=== PATIENT | female | born 1950 | race Caucasian/White ===

== ENCOUNTER 2021-06-18 06:13 | Day surgery (SDC) | payer MEDICARE ==
[2021-06-11 13:17] LABS: ALBUMIN 3.8 G/DL (3.4-5.0); ALKALINE PHOSPHATASE 68 IU/L (46-116); BLOOD UREA NITROGEN 17 MG/DL (7-18); BUN/CREATININE RATIO 21.3 (6.6-38.0); CALCIUM 9.2 MG/DL (8.5-10.1); CHLORIDE 103 MMOL/L (99-107); PRE OP ALT 60 U/L (30-65); PRE OP ANION GAP 6 (8-16); PRE OP AST 34 U/L (10-37); PRE OP BILIRUB, TOTAL 0.6 MG/DL (0.0-1.0); PRE OP GLUCOSE 88 MG/DL (70-104); PRE OP POTASSIUM 3.6 MMOL/L (3.4-5.1); PRE OP SODIUM 141 MMOL/L (135-145); TOTAL CARBON DIOXIDE 31.6 MMOL/L (24-32); TOTAL PROTEIN 7.6 G/DL (6.4-8.2); eGFR 71 ML/MIN
[2021-06-11 13:57] LABS: BASOPHILS # (AUTO) 0.1 X10'3 (0-0.2); EOSINOPHILS # (AUTO) 0.2 X10'3 (0-0.9); LYMPHOCYTES # (AUTO) 1.4 X10'3 (1.1-4.8); LYMPHOCYTES % (AUTO) 26.2 % (21-51); MEAN CORPUSCULAR HGB CONC 34.2 g/dL (33.0-36.5); MEAN CORPUSCULAR VOLUME 90.8 FL (78-98); MEAN PLATELET VOLUME 8.7 FL (7.4-10.4); MONOCYTES # (AUTO) 0.6 X10'3 (0-0.9); MONOCYTES % (AUTO) 11.8 % (2-12); PRE OP HEMATOCRIT 44.6 % (35.0-45.0); PRE OP HEMOGLOBIN 15.2 g/dL (12.0-16.0); PRE OP PLATELET COUNT 281 X10'3 (140-440); RED BLOOD COUNT 4.91 X10'6 (4.20-5.60); RED CELL DISTRIBUTION WIDTH 13.6 % (11.5-14.5)
[~2021-06-18] VITALS: Ht 167.6 cm; Wt 91.2 kg
[~2021-06-18 06:13] MED LIST: CALC-854 PO; DILT-115 PO; ERGO400C PO; ESTR1PAT TD; HYDR12.55 PO; MAGN200T PO; OMEG-79 PO; PRAV40TA3 PO; THYR90TA12 PO; VITA0.4T18 PO; cefazolin/dext.iso 2gm/100ml IV ONE; famotidine 20mg tablet PO ONE; ringers solution, lacted 1,000 ML IV SCH
[2021-06-18 06:20] VITALS: BP 148/89
[2021-06-18] MEDS ORDERED: BUPIVAcaine/PF 2.5mg/ml (0.25%) 10ml vial ONE (06:42)
[2021-06-18] MEDS ORDERED: proCHLORperazine 10 MG/2 ml inj IV PRN (08:00)
[2021-06-18] MEDS ORDERED: meperidine/PF 25mg/ml syringe IV PRN ×3 (08:00)
[2021-06-18] MEDS ORDERED: ondansetron/PF 4mg/2ml inj IV PRN (08:00)
[2021-06-18] MEDS ORDERED: ringers solution, lacted 1,000 ML IV SCH (08:00)
[2021-06-18] MEDS ORDERED: fentaNYL/PF 50MCG/1 ML 2ML syringe ONE (08:48)
[2021-06-18] MEDS ORDERED: midazolam 1 mg/ML 2ml injection ONE (08:48)
[2021-06-18] MEDS ORDERED: LIDOcaine 0.5% (5mg/ml) 50ml vial ONE (08:48)
[2021-06-18] MEDS ORDERED: propofol inj 20 ML IV ONE (09:20)
[2021-06-18 09:24] VITALS: BP 157/86
--- NOTE | 2021-06-18 09:24 | NUR ---
ASSUME CARE PT AWAKE VSS NO DISTRESS ON RA, SAT 100% DENIES PAIN. +CMS TO RIGHT HAND. IV TO LEFT AC INFUSING WITHOUT DIFF. CONT TO MONITOR. Addendum: 06/18/21 at 1015 by Nadege Rodriguez RN Amended: Links added.
[2021-06-18 09:34] VITALS: BP 157/80
--- NOTE | 2021-06-18 09:40 | NUR ---
PT AWAKE DENIES PAIN VSS +CMS TO RIGHT HAND. LISA PO'S MEETS CRITERIA TO DC HOME INSTR GIVEN ON ?'S OR CONCERNS Addendum: 06/18/21 at 1017 by Nadege Rodriguez RN Amended: Links added.
== END 2021-06-18 09:44 | disposition home or self-care (01) ==
LOC: PAS 06:13
PROVIDERS: ATTEND Orthopaedic Surgery Hand Surgery
DX: M72.0 Palmar fascial fibromatosis [Dupuytren] (principal); E03.9 Hypothyroidism, unspecified; E78.5 Hyperlipidemia, unspecified; E66.8 Other obesity; Z68.32 Body mass index [BMI] 32.0-32.9, adult; M19.072 Primary osteoarthritis, left ankle and foot; M17.12 Unilateral primary osteoarthritis, left knee; Z88.5 Allergy status to narcotic agent; Z79.899 Other long term (current) drug therapy; Z90.49 Acquired absence of other specified parts of digestive tract; Z90.710 Acquired absence of both cervix and uterus; Z98.890 Other specified postprocedural states; Z98.41 Cataract extraction status, right eye; Z98.42 Cataract extraction status, left eye; Z20.822 Contact with and (suspected) exposure to COVID-19
CPT/HCPCS: 26121; 36415; 80053; 82948; 85025; A6222; J2001; J2250; J2704; J3010; J3490; U0003; U0005; Z7506; Z7512; A4215; A4615; A4618; A6449; J7120